=== PATIENT | male | born 1950 | race Caucasian/White ===

== ENCOUNTER 2021-04-28 14:59 | Emergency (ER) | payer MEDICARE ==
[2021-04-28] MEDS ORDERED: ONDANSETRON 4 MG/2 ML VIAL IVP STA (15:40)
--- NOTE | 2021-04-28 15:43 | ED Physician Documentation ---
History of Present Illness - Stated complaint Stated Complaint: VOMITING - Chief complaint Chief Complaint: Abd Pain - History obtained from History obtained from: Patient - Additonal information Additional information: Patient comes emergency department chief complaint of nausea vomiting and lightheadedness for the last 3 days. He denies fevers or chills. He denies abdominal pain except for getting sharp cramps right before he is about to vomit. After that, he states, his symptoms improved. Patient denies diarrhea. He has been having stools and passing gas. No sick contacts as far as he knows. No suspicious food. Patient denies any ongoing GI issues. He states he has had multiple orthopedic surgeries and walks with a cane because of this. Otherwise, he states he is quite healthy. He states when he got up a couple of times today he felt very lightheaded as though he was going to faint but did not actually end up losing consciousness. Review of Systems Ten Systems: 10 systems reviewed and negative Constitutional: reports: Fatigue Eyes: reports: Reviewed and negative Ears: reports: Reviewed and negative Nose: reports: Reviewed and negative Throat: reports: Reviewed and negative Cardiac: reports: Reviewed and negative Respiratory: reports: Reviewed and negative GI: reports: Nausea, Vomiting : reports: Reviewed and negative Skin: reports: Reviewed and negative Musculoskeletal: reports: Reviewed and negative Neurologic: reports: Reviewed and negative Psychiatric: reports: Reviewed and negative Endocrine: reports: Reviewed and negative Immunocompromised: reports: Reviewed and negative PD PAST MEDICAL HISTORY - Present Medications Home Medications: Ambulatory Orders Medication Instructions Recorded Confirmed DULoxetine [Cymbalta] 20 mg PO DAILY PM 04/28/21 04/28/21 DULoxetine [Cymbalta] 40 mg PO DAILY 04/28/21 04/28/21 Lisinopril [Zestril] 20 mg PO DAILY 04/28/21 04/28/21 Naproxen [EC-Naproxen] 500 mg PO BID 04/28/21 04/28/21 Ondansetron Odt [Zofran] 4 mg TL Q6H PRN #10 tablet 04/28/21 - Allergies Allergies/Adverse Reactions: Allergies Allergy/AdvReac Type Severity Reaction Status Date / Time codeine AdvReac Headache Verified 04/28/21 15:17 PD ED PE NORMAL - Vitals Vital signs reviewed: Yes - General General: Alert and oriented X 3, No acute distress, Well developed/nourished (Patient is thin.) - HEENT HEENT: Atraumatic, PERRL, EOMI, Moist mucous membranes - Neck Neck: Supple, no meningeal sign - Cardiac Cardiac: RRR, No murmur, Strong equal pulses - Respiratory Respiratory: No respiratory distress, Clear bilaterally - Abdomen Abdomen: Soft, Non tender, Non distended, Other (Benign abdomen) - Derm Derm: Normal color, Warm and dry, No rash - Extremities Extremities: No deformity, No edema, No calf tenderness / cord - Neuro Neuro: Alert and oriented X 3, associate curator 2-12 intact, Normal speech - Psych Psych: Normal mood, Normal affect Results - Vitals Vitals: Vital Signs - 24 hr 04/28/21 15:14 Temperature 36.7 C Heart Rate 86 Respiratory 16 Rate Blood Pressure 145/86 H O2 Saturation 99 Oxygen O2 Source Room air - Labs Labs: Laboratory Tests 04/28/21 04/28/21 15:48 15:48 WBC 6.2 RBC 4.50 L Hgb 14.1 Hct 41.2 L MCV 91.6 MCH 31.3 H MCHC 34.2 RDW 12.3 Plt Count 210 MPV 9.9 Neut # (Auto) 4.8 Lymph # (Auto) 1.0 L [place] # (Auto) 0.3 Eos # (Auto) 0.0 Baso # (Auto) 0.1 Absolute Nucleated RBC 0.00 Nucleated RBC % 0.0 Sodium 139 Potassium 4.1 Chloride 100 L Carbon Dioxide 26 Anion Gap 13.0 BUN 28 H Creatinine 0.9 Estimated GFR (MDRD) 83 L Glucose 111 H Calcium 9.5 Total Bilirubin 2.5 H AST 23 ALT 17 Alkaline Phosphatase 64 Total Protein 7.7 Albumin 4.7 Globulin 3.0 Albumin/Globulin Ratio 1.6 Lipase 33 PD MEDICAL DECISION MAKING - ED course Complexity details: reviewed results, re-evaluated patient, considered differential, d/w patient ED course: The patient appeared thin but was otherwise well-appearing, bright, and alert. I treated him symptomatically with IV fluids and Zofran and worked him up with labs and UA. He had a benign abdominal exam. Patient's work-up overall was fairly unremarkable. He was found to be feeling much better after IV fluids and meds and tolerated a p.o. challenge with ice chips very well. We have discussed home management of the symptoms with Zofran and advancement of diet. We have discussed the usual indications for return. Departure - Departure Disposition: 01 Home, Self Care Clinical Impression: Vomiting Qualifiers: Vomiting type: bilious vomiting Nausea presence: with nausea Qualified Code(s): R11.14 - Bilious vomiting Condition: Stable Instructions: ED Nausea Vomiting Prescriptions: Ondansetron Odt [Zofran] 4 mg TL Q6H PRN #10 tablet PRN Reason: Nausea / Vomiting Comments: Your labs overall look fairly good. Most likely, you have one of the viral illnesses that is going around at this time and causing such symptoms as you have. Please drink clear liquids this evening and tomorrow, if you are still tolerating the clear liquids okay, you may advance your diet to simple starches such as oyster crackers, saltine crackers, Ramen, or cup of noodles. If you tolerate these okay, you may advance your diet as tolerated. Please take the nausea medicine as needed.
[2021-04-28 15:53] LABS: BASOPHILS # (AUTO) 0.1 10^3/uL (0.0-0.1); EOSINOPHILS % (AUTO) 0.2 %; HCT - HEMATOCRIT 41.2 % (42.0-52.0); HGB - HEMOGLOBIN 14.1 g/dL (14.0-18.0); LYMPHOCYTES % (AUTO) 15.4 %; MEAN CORPUSCULAR HEMOGLOBIN 31.3 pg (27.0-31.0); MEAN CORPUSCULAR HGB CONC 34.2 g/dL (32.0-36.0); MEAN CORPUSCULAR VOLUME 91.6 fL (80.0-94.0); MEAN PLATELET VOLUME 9.9 fL (7.4-11.4); MONOCYTES # (AUTO) 0.3 10^3/uL (0.0-1.0); NEUTROPHILS # (AUTO) 4.8 10^3/uL (1.5-6.6); NEUTROPHILS % (AUTO) 78.2 %; PLT - PLATELET COUNT 210 10^3/uL (130-450); RED CELL DISTRIBUTION WIDTH 12.3 % (12.0-15.0); WHITE BLOOD COUNT 6.2 x10^3/uL (4.8-10.8)
[2021-04-28 16:42] LABS: ALBUMIN 4.7 g/dL (3.2-5.5); BILIRUBIN,TOTAL 2.5 mg/dL (0.2-1.0); CREATININE 0.9 mg/dL (0.6-1.2); TOTAL PROTEIN 7.7 g/dL (6.7-8.2)
[2021-04-28 16:43] LABS: ALBUMIN/GLOBULIN RATIO 1.6 (1.0-2.2)
[2021-04-28 16:45] LABS: CALCIUM 9.5 mg/dL (8.5-10.3); POTASSIUM 4.1 mmol/L (3.5-5.0)
[2021-04-28 19:50] VITALS: BP 167/83
== END 2021-04-28 18:00 | disposition home or self-care (01) ==
LOC: ED 14:59
DX: R11.14 Bilious vomiting (principal)
CPT/HCPCS: 36415; 80053; 83690; 85025; 96374; 99283